=== PATIENT | female | born 1945 | race Caucasian/White ===

== ENCOUNTER 2024-08-14 06:23 | Observation (INO) ==
[~2024-08-14 06:23] MED LIST: Metoclopramide 5 MG/ML VIAL (10 mg) IV PRN; NS 0.45% 1000 ml BAG 1,000 ML IV SCH; Naloxone 0.4 mg VIAL 0.4 mg/ml 1 ml VIAL IV PRN; Ondansetron 4 mg VIAL 2 MG/ML 2 ml VIAL IV PRN
[2024-08-14 07:05] LABS: Rapid COVID-19 Molecular Undetected (Undetected)
[2024-08-14] MEDS ORDERED: ceFAZolin 2 GM PREMIX 2 GM/50 ML BAG ONE (07:23)
[2024-08-14] MEDS ORDERED: fentaNYL 100 mcg/2 ml 50 MCG/ML VIAL ONE ×3 (07:37→12:37)
[2024-08-14] MEDS ORDERED: Midazolam 2 mg/2 ml VIAL 1 mg/ml 2 ml VIAL (2 mg) ONE (07:37)
[2024-08-14] MEDS ORDERED: Dexamethasone IV 4 MG/ML VIAL 1 ml VIAL ONE ×2 (07:38→10:03)
[2024-08-14] MEDS ORDERED: ROPIVACAINE 5 MG/ML 30 ML BTL (0.5%) ONE ×2 (07:38→08:48)
[2024-08-14] MEDS ORDERED: Propofol 10 MG/ML 20 ML BTL ONE ×2 (07:50)
[2024-08-14] MEDS ORDERED: KETAMINE HCL 10 MG/ML 20 ml VIAL (200 MG) ONE (08:00)
[2024-08-14] MEDS ORDERED: Lidocaine 2% PF 5 ML VIAL ONE (08:00)
[2024-08-14] MEDS ORDERED: Rocuronium 50 mg VIAL 10 mg/ml 5 ml VIAL (50 mg) ONE ×2 (09:13→09:14)
[2024-08-14] MEDS ORDERED: fentaNYL 250 mcg/5 ml 50 MCG/ML 5 ml VIAL (250 MCG) ONE (09:14)
[2024-08-14] MEDS ORDERED: HYDROmorphone 0.5 MG/0.5 ML SYRINGE ONE (10:01)
[2024-08-14] MEDS ORDERED: Ondansetron 4 mg VIAL 2 MG/ML 2 ml VIAL ONE (10:03)
[2024-08-14] MEDS ORDERED: Ondansetron 4 mg VIAL 2 MG/ML 2 ml VIAL IV PRN (11:49)
[2024-08-14] MEDS ORDERED: Calcium Carb (TUMS) 500 mg CHEW TAB PO PRN (11:49)
[2024-08-14] MEDS ORDERED: Morphine 2 MG/ML SYRINGE IV PRN (11:49)
[2024-08-14] MEDS ORDERED: Lactulose 30 ml UDC PO PRN (11:49)
[2024-08-14] MEDS ORDERED: Magnesium Hydroxide LIQ 30 ML UDC PO PRN (11:49)
[2024-08-14] MEDS ORDERED: Ondansetron ODT 4 mg TAB 4 MG TAB PO PRN (11:49)
[2024-08-14] MEDS: fentaNYL 100 mcg/2 ml 50 MCG/ML VIAL IV PRN (12:01)
[2024-08-14] MEDS: Buffered Lidocaine 1% SYRIN 1 ml INTRADERM ONE (13:32)
[2024-08-14] MEDS: Acetaminophen IV 1 GM/100ML 1,000 MG/100 ML BAG IV ONE (13:32)
[2024-08-14] MEDS: Lactated Ringers 1000 ml BAG 1,000 ML IV SCH ×2 (13:33→13:45)
[2024-08-14] MEDS: Scopolamine 1 mg/72hr PATCH TRANSDERM ONE (13:47)
[2024-08-14] MEDS: ceFAZolin 2 GM PREMIX 2 GM/50 ML BAG IV SCH (17:29)
[2024-08-14] MEDS: Magnesium Hydroxide LIQ 30 ML UDC PO SCH (21:11)
[2024-08-15 06:52] LABS: Hemoglobin 10.7 g/dL (11.5-14.3); Platelet Count 276 10^3/uL (150-450)
[2024-08-15 07:20] LABS: Calcium 8.6 mg/dL (8.6-10.3); Creatinine, Serum 0.94 mg/dL (0.51-0.95); Potassium 4.2 mmol/L (3.5-5.0); eGFR CKD-EPI 62.5 (>60)
[2024-08-15] MEDS: Vitamin THERAPEUTIC TAB PO SCH (07:56)
[2024-08-15 10:24] VITALS: BP 126/62
== END 2024-08-15 12:40 | disposition home or self-care (01) ==
LOC: OR 06:23 → SSU 06:23
PROVIDERS: ADMIT Orthopaedic Surgery Adult Reconstructive Orthopaedic Surgery; ATTEND Orthopaedic Surgery Adult Reconstructive Orthopaedic Surgery